=== PATIENT | female | born 1950 | race Caucasian/White ===

== ENCOUNTER 2017-02-22 09:01 | Emergency (ER) | payer OTHER ==
[~2017-02-22] VITALS: Ht 152.4 cm; Wt 73.0 kg
[~2017-02-22 09:01] MED LIST: ACCOLATE20 MG PO; ADVAIR 250/501 DISK IH; ADVAIR HFA120 INHALA IH; ALBUTEROL17 GM IH; AMBIEN CR12.5 MG PO; ATORVASTATIN CA20 MG PO; BACLOFEN10 MG PO; BRETHINE PO; BRETHINE5 MG PO; CARAFATE1 GM PO; CARAFATE100 MG/ML PO; CIPROFLOXACIN500 M1 PO; DOMP10T PO; LEVAQUIN500 MG PO; LEVOFLOXACIN750 MG PO; LEVOTHYROXINE200 MC1 PO; LEVOTHYROXINE25 MCG PO; LIDODERM 5% P1 PATCH PO; LIORESAL10 MG PO; LIPITOR20 MG PO; LORAZEPAM1 MG PO; LYRICA150 MG PO; LYRICA300 MG PO; MUCINEX600 MG PO; NASONEX17 GM BOTH NARES; NEXIUM40 MG PO; NUCYNTA ER150 MG PO; NUCYNTA ER200 MG PO; NUCYNTA ER250 MG PO; ONDANSETRON ODT8 MG PO; PREDNISONE10 MG PO; PREDNISONE20 M1 PO; PROMETHAZINE HC25 M1 PO; PROVENTIL,2.5 MG/3 M IH; RANITIDINE HCL300 MG PO; SAVELLA50 MG PO; SYNTHROID175 MCG PO; SYNTHROID200 MCG PO; TOPAMAX25 MG PO; TOPAMAX50 MG PO; TRICOR145 MG PO; TYLENOL WITH C1 EACH PO; ULTRAM50 MG PO; VENTOLIN HFA18 GM IH; VOLTAREN100 GM TP; ZYRTEC10 M3 PO
[2017-02-22 10:09] LABS: BASE EXCESS 2.3 mEq/L (-3 to +3); BICARBONATE 24.7 mEq/L (22-26); COMMENTS - BLOOD GASES C+A+; DEVICE RA; METHEMOGLOBIN 0.7 % (0-1.5); PCO2 31 mm Hg (35-45); PO2 62 mm Hg (80-100); SITE RR; TOTAL RESP RATE 20 resp/min; pH 7.51 (7.35-7.45)
[2017-02-22 10:55] LABS: ADD MIUA? YES; BILIRUBIN NEGATIVE; BLOOD SMALL; COLOR YELLOW ((YELLOW)); GLUCOSE (STRIP) NEGATIVE; KETONES 5; LEUKOCYTES TRACE; NITRITE NEGATIVE; PROTEIN (STRIP) 30; SPECIFIC GRAVITY 1.021 (1.000-1.030); UROBILINOGEN 0.2 MG/DL (0.2-1.0)
[2017-02-22 11:00] LABS: BACTERIA RARE /HPF; EPITHELIAL CELLS RARE /HPF; HYALINE CASTS 0-5 /LPF; MUCUS 1+ /LPF; RED BLOOD CELLS 0-5 /HPF (0-5); UCUL ADDED? YES
[2017-02-22 11:01] LABS: HEMATOCRIT 42.5 % (36.0-46.0); MCH 26.4 PG (29.0-34.0); MCHC 33.6 G/DL (30.0-36.0); MCV 78.6 FL (83-99); RBC DIS.WIDTH-CV 12.4 % (11.8-14.6); RBC DIS.WIDTH-SD 35.3 % (39-53); RED BLOOD COUNT 5.41 M/uL (3.80-5.20); WHITE BLOOD COUNT 8.5 K/uL (4.1-10.2)
[2017-02-22 11:11] LABS: CHLORIDE 101 mEq/L (99-109); POTASSIUM 4.1 mEq/L (3.7-5.4); SODIUM 135 mEq/L (136-147)
[2017-02-22 11:13] LABS: GLUCOSE 172 mg/dL (70-99)
[2017-02-22 11:14] LABS: ANION GAP 14 MEQ/L (2-14)
[2017-02-22 11:15] LABS: TOTAL BILIRUBIN 0.4 mg/dL (0.0-1.0)
[2017-02-22 11:16] LABS: ALKALINE PHOSPHATASE 61 IU/L (3-129)
[2017-02-22 11:17] LABS: GFR ESTIMATE (CALCULATED) > 59 mL/min/
[2017-02-22 11:18] LABS: UREA NITROGEN (BUN) 16 mg/dL (9-23)
[2017-02-22 12:42] LABS: ANISOCYTOSIS 1+; EOSINOPHIL (%) 0 % (0-5); IMMATURE GRANULOCYTE (%) 0.2 % (0.0-0.7); INSTRUMENT ABS NEUTROPHIL CT 7.4 K/uL; LYMPHOCYTE COUNT 0.6 K/uL (1.0-2.8); MEAN PLAT.VOLUME 10.5 uM^3 (9.5-12.4); MICROCYTOSIS 1+; MONOCYTE (%) 6.6 % (3-12); MONOCYTE COUNT 0.6 K/uL (0-0.8); NEUTROPHIL (%) 86.4 % (45-76); NEUTROPHIL COUNT 7.4 K/uL (1.8-6.4); PLAT.SUFFICIENCY ADEQUATE; PLATELET CLUMPS PRESENT - PLATELET COUNT APPEARS ADQ.; PLATELET COUNT 171 K/uL (156-360); POIKILOCYTOSIS 1+
[2017-02-22] MEDS ORDERED: LEVAQUIN750 MG PO (14:20)
[2017-02-22 14:48] VITALS: BP 113/72
== END 2017-02-22 15:02 | disposition home or self-care (01) ==
LOC: EME 09:01
PROVIDERS: Emergency Medicine
DX: N39.0 Urinary tract infection, site not specified (principal); J18.9 Pneumonia, unspecified organism; M79.7 Fibromyalgia; K21.9 Gastro-esophageal reflux disease without esophagitis; E78.5 Hyperlipidemia, unspecified; J45.909 Unspecified asthma, uncomplicated; Z87.442 Personal history of urinary calculi
CPT/HCPCS: 36600; 71010; 80053; 81003; 82803; 83605; 84443; 85025; 87086; 93005; 99281; 99285; J0696; J7030; J7050

== ENCOUNTER 2017-03-11 10:28 | Emergency (ER) | payer OTHER ==
[~2017-03-11] VITALS: Ht 152.4 cm; Wt 71.8 kg
[~2017-03-11 10:28] MED LIST changes: +LEVAQUIN750 MG PO
[2017-03-11 10:35] VITALS: BP 111/71
[2017-03-11] MEDS ORDERED: NAPROSYN500 MG PO (13:59)
== END 2017-03-11 14:27 | disposition home or self-care (01) ==
LOC: EME 10:28
DX: S80.02XA Contusion of left knee, initial encounter (principal); W10.9XXA Fall (on) (from) unspecified stairs and steps, initial encounter; J45.909 Unspecified asthma, uncomplicated; R73.03 Prediabetes
CPT/HCPCS: 73564; 99281; 99284

== ENCOUNTER 2017-06-11 11:04 | Inpatient (IN) | payer OTHER ==
[~2017-06-11] VITALS: Ht 152.4 cm; Wt 70.3 kg
[~2017-06-11 11:04] MED LIST changes: +NAPROSYN500 MG PO
[2017-06-11 11:44] LABS: APPEARANCE SL.HAZY ((CLEAR)); BILIRUBIN NEGATIVE; BLOOD NEGATIVE; COLOR YELLOW ((YELLOW)); GLUCOSE (STRIP) NEGATIVE; KETONES 5; LEUKOCYTES NEGATIVE; NITRITE NEGATIVE; PROTEIN (STRIP) NEGATIVE; SPECIFIC GRAVITY 1.015 (1.000-1.030); UROBILINOGEN 0.2 MG/DL (0.2-1.0)
[2017-06-11 11:48] LABS: BACTERIA NONE SEEN /HPF; EPITHELIAL CELLS RARE /HPF; MUCUS TRACE /LPF; RED BLOOD CELLS 0-5 /HPF (0-5); UCUL ADDED? NO; WHITE BLOOD CELLS 0-5 /HPF (0-5)
[2017-06-11 12:24] LABS: BASOPHIL (%) 0.3 % (0-1); EOSINOPHIL (%) 2.5 % (0-5); EOSINOPHIL COUNT 0.3 K/uL (0-0.3); HEMATOCRIT 38.7 % (36.0-46.0); HEMOGLOBIN 13.2 G/DL (11.9-15.5); IMMATURE GRANULOCYTE (%) 0.3 % (0.0-0.7); LYMPHOCYTE (%) 3.1 % (15-42); LYMPHOCYTE COUNT 0.4 K/uL (1.0-2.8); MCH 26.9 PG (29.0-34.0); MCHC 34.1 G/DL (30.0-36.0); MCV 78.8 FL (83-99); MONOCYTE (%) 3.8 % (3-12); MONOCYTE COUNT 0.4 K/uL (0-0.8); NEUTROPHIL COUNT 10.3 K/uL (1.8-6.4); PLATELET COUNT 225 K/uL (156-360); RBC DIS.WIDTH-CV 13.1 % (11.8-14.6); RBC DIS.WIDTH-SD 37.2 % (39-53); RED BLOOD COUNT 4.91 M/uL (3.80-5.20); WHITE BLOOD COUNT 11.4 K/uL (4.1-10.2)
[2017-06-11 12:38] LABS: CHLORIDE 102 mEq/L (99-109)
[2017-06-11 12:39] LABS: POTASSIUM 3.7 mEq/L (3.7-5.4); SODIUM 134 mEq/L (136-147)
[2017-06-11 12:40] LABS: GLUCOSE 122 mg/dL (70-99)
[2017-06-11 12:44] LABS: CREATININE 0.8 mg/dL (0.6-1.3); GFR ESTIMATE (CALCULATED) > 59 mL/min/
[2017-06-11 12:45] LABS: UREA NITROGEN (BUN) 13 mg/dL (9-23)
[2017-06-11] MEDS ORDERED: ADVAIR HFA120 INHAL1 IH (14:20)
[2017-06-11] MEDS ORDERED: BRETHINE5 MG PO (14:22)
[2017-06-11] MEDS ORDERED: VERAPAMIL HCL180 MG PO (14:24)
[2017-06-11] MEDS ORDERED: HYDROCHLOROTHIA25 MG PO (14:25)
[2017-06-11] MEDS ORDERED: CRESTOR5 MG PO (14:25)
[2017-06-11] MEDS ORDERED: NEURONTIN400 MG PO (14:25)
[2017-06-11] MEDS ORDERED: VITAMIN D22000 UNIT PO (14:26)
[2017-06-11] MEDS ORDERED: MAGNESIUM OXID500 MG PO (14:27)
[2017-06-11] MEDS ORDERED: B-121000 MC2 PO (14:28)
[2017-06-11] MEDS ORDERED: CENTRUM WOMEN1 EACH PO (14:28)
[2017-06-11 16:00] VITALS: BP 94/59
[2017-06-11 19:55] VITALS: BP 99/62
[2017-06-11 23:40] VITALS: BP 98/64
[2017-06-12 04:05] VITALS: BP 98/68
[2017-06-12 06:35] LABS: HEMATOCRIT 34.4 % (36.0-46.0); MCH 26.9 PG (29.0-34.0); MCHC 32.3 G/DL (30.0-36.0); PLATELET COUNT 194 K/uL (156-360); RBC DIS.WIDTH-CV 13.6 % (11.8-14.6); RBC DIS.WIDTH-SD 41.5 % (39-53); RED BLOOD COUNT 4.12 M/uL (3.80-5.20)
[2017-06-12 06:40] LABS: HEMOGLOBIN 11.1 G/DL (11.9-15.5); MCV 83.5 FL (83-99)
[2017-06-12 06:41] LABS: CHLORIDE 111 MEQ/L (99-109); CREATININE 0.6 MG/DL (0.6-1.3); GFR ESTIMATE (CALCULATED) > 59 mL/min/; GLUCOSE 110 mg/dL (70-99); POTASSIUM 3.5 MEQ/L (3.7-5.4); SODIUM 141 MEQ/L (136-147); UREA NITROGEN (BUN) 11 mg/dL (9-23)
[2017-06-12 08:02] VITALS: BP 93/41
[2017-06-12 11:19] VITALS: BP 101/60
[2017-06-12 15:42] VITALS: BP 84/65
[2017-06-12 20:13] VITALS: BP 97/53
[2017-06-12 23:47] VITALS: BP 109/56
[2017-06-13 03:14] VITALS: BP 111/59
[2017-06-13 06:16] LABS: CHLORIDE 110 MEQ/L (99-109); MAGNESIUM 1.9 mg/dl (1.3-2.7); POTASSIUM 3.7 MEQ/L (3.7-5.4); SODIUM 139 MEQ/L (136-147)
[2017-06-13 06:21] LABS: CREATININE 0.6 MG/DL (0.6-1.3); GFR ESTIMATE (CALCULATED) > 59 mL/min/; GLUCOSE 130 mg/dL (70-99); UREA NITROGEN (BUN) 8 mg/dL (9-23)
[2017-06-13 06:43] LABS: BASOPHIL (%) 0.5 % (0-1); EOSINOPHIL COUNT 0.1 K/uL (0-0.3); HEMATOCRIT 29.5 % (36.0-46.0); HEMOGLOBIN 9.8 G/DL (11.9-15.5); IMMATURE GRANULOCYTE (%) 0.3 % (0.0-0.7); LYMPHOCYTE (%) 17.3 % (15-42); MCH 27.2 PG (29.0-34.0); MCHC 33.2 G/DL (30.0-36.0); MCV 81.9 FL (83-99); MONOCYTE (%) 8.8 % (3-12); MONOCYTE COUNT 0.5 K/uL (0-0.8); NEUTROPHIL (%) 71.1 % (45-76); NEUTROPHIL COUNT 4.2 K/uL (1.8-6.4); PLATELET COUNT 176 K/uL (156-360); RBC DIS.WIDTH-CV 13.8 % (11.8-14.6); RBC DIS.WIDTH-SD 41.3 % (39-53); WHITE BLOOD COUNT 5.9 K/uL (4.1-10.2)
[2017-06-13 07:41] VITALS: BP 108/60
[2017-06-13] MEDS ORDERED: CEFTIN500 MG PO (09:22)
[2017-06-13] MEDS ORDERED: AZITHROMYCIN250 MG1 PO (09:26)
== END 2017-06-13 12:00 | disposition home or self-care (01) | DRG 194 ==
LOC: EME 11:04 → EDOF 13:14 → 4SOUTH 13:14 → ENRESERV 13:18 → 4SOUTH 15:20 → ENPENDDIS 06-13 → 4SOUTH 06-13 12:00
PROVIDERS: Emergency Medicine; Internal Medicine; Physician Assistant
DX: J18.9 Pneumonia, unspecified organism (principal); N39.0 Urinary tract infection, site not specified; E87.1 Hypo-osmolality and hyponatremia; E86.1 Hypovolemia; J45.909 Unspecified asthma, uncomplicated; E11.9 Type 2 diabetes mellitus without complications; I10 Essential (primary) hypertension; M79.7 Fibromyalgia; I95.9 Hypotension, unspecified; K21.9 Gastro-esophageal reflux disease without esophagitis; E03.9 Hypothyroidism, unspecified; E78.5 Hyperlipidemia, unspecified; G89.29 Other chronic pain; G43.909 Migraine, unspecified, not intractable, without status migrainosus; M54.9 Dorsalgia, unspecified; F41.9 Anxiety disorder, unspecified; K44.9 Diaphragmatic hernia without obstruction or gangrene; R41.82 Altered mental status, unspecified; R61 Generalized hyperhidrosis; M19.90 Unspecified osteoarthritis, unspecified site; Z80.6 Family history of leukemia; Z85.01 Personal history of malignant neoplasm of esophagus; Z87.440 Personal history of urinary (tract) infections; Z87.442 Personal history of urinary calculi
CPT/HCPCS: 71046; 80048; 81003; 83605; 83735; 85025; 85027; 87040; 87070; 87205; 87502; 93005; 94640; 94640 76; 99202; 99281; 99285; J0456; J0696; J1650; J7030